=== PATIENT | male | born 2000 | race Caucasian/White ===

== ENCOUNTER 2018-06-13 19:26 | Emergency (ER) | payer MEDICAID ==
[~2018-06-13] VITALS: Ht 177.8 cm; Wt 59.0 kg
[~2018-06-13 19:26] MED LIST: ACET-7740 PO
--- NOTE | 2018-06-13 19:26 | NUR ---
PT JOSH MAY, PREBOOK. TAKEN TO CHAIR E
[2018-06-13 19:27] VITALS: BP 140/96
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
--- NOTE | 2018-06-13 19:47 | NUR ---
Dr. Farrar evaluating patient at bedside.
[2018-06-13 20:02] VITALS: BP 129/88
--- NOTE | 2018-06-13 20:02 | NUR ---
PT CLEARED TO BOOK BY DR. VALENCIA. Patient discharged with v/s stable. Written and verbal after care instructions given and explained. Patient verbalized understanding. Ambulatory with steady gait. All questions addressed prior to discharge. Advised to follow up with PMD.
== END 2018-06-13 20:02 ==
LOC: MED 19:26
DX: Z02.89 Encounter for other administrative examinations (principal); Z79.899 Other long term (current) drug therapy; F12.10 Cannabis abuse, uncomplicated
CPT/HCPCS: 99283